=== PATIENT | female | born 1995 | race Caucasian/White ===

== ENCOUNTER 2020-07-09 04:14 | Emergency (ER) | payer SELFPAY ==
[~2020-07-09] VITALS: Ht 157.5 cm; Wt 63.7 kg
[2020-07-09] MEDS ORDERED: KETOROLAC 30 MG/1 ML ONE (04:38)
[2020-07-09] MEDS ORDERED: ONDANSETRON 2MG/ML, 2ML ONE (04:39)
--- NOTE | 2020-07-09 04:52 | NUR ---
Pt to ER with c/o abd pain, flank pain, n/v that started last night. Pt states she has had kidney stones in the past and this feels similar. Pt has had n/v this morning and can't keep anything down. Pt states she took a percocet last night. Pt to room, unable to give urine sample at this time. Pt on monitor, IV started, labs drawn and pt medicated per order. Warm blanket given. will Monitor.
[2020-07-09] MEDS ORDERED: ONDANSETRON 2MG/ML, 2ML IVPush ONE (05:00)
[2020-07-09] MEDS ORDERED: KETOROLAC 30 MG/1 ML IVPush ONE (05:00)
[2020-07-09] MEDS ORDERED: SODIUM CHLORIDE FLUSH 10ML SYR IVF ONE (05:00)
[2020-07-09 05:11] LABS: BASOPHILS % (AUTO) 0 % (0-1); EOSINOPHILS % (AUTO) 0 % (1-7); LYMPHOCYTES % (AUTO) 16 % (22-44); MEAN CORPUSCULAR HEMOGLOBIN 31.8 pg (27.0-34.8); MEAN CORPUSCULAR HGB CONC 35.5 g/dL (32.4-35.8); MEAN PLATELET VOLUME 7.5 fL (7.4-10.4); MONOCYTES % (AUTO) 6 % (2-9); NEUTROPHILS % (AUTO) 77 % (42-75); PLATELET COUNT 181 x10^3/uL (130-400); RED BLOOD COUNT 4.58 x10^6/uL (3.82-5.3); RED CELL DISTRIBUTION WIDTH 12.1 % (9.6-15.2)
[2020-07-09 05:14] LABS: MD NO
[2020-07-09 05:18] LABS: ALANINE AMINOTRANSFERASE 18 U/L (12-78); ALBUMIN 4.4 g/dL (3.4-5.0); ANION GAP 11 mmol/L (5-15); CHLORIDE 105 mmol/L (98-107); CREATININE 0.77 mg/dL (0.55-1.02)
[2020-07-09 05:23] LABS: ALKALINE PHOSPHATASE 53 U/L (45-117); BILIRUBIN,TOTAL 0.5 mg/dL (0.2-1.0); TOTAL PROTEIN 7.6 g/dL (6.4-8.2)
--- NOTE | 2020-07-09 05:26 | NUR ---
Pt states pain and nausea have improved. Pt aware of the need for UA.
[2020-07-09 06:12] LABS: MICROSCOPIC INDICATED
--- NOTE | 2020-07-09 07:04 | NUR ---
FIRST CONTACT. PT. REPORTS FEELING BETTER. PROVIDER AT THE BEDSIDE TO DISCUSS FINDINGS. PT. WAS GIVEN DISCHARGE INSTRUCTIONS AND SCRIPTS WITH UNDERSTANDING VERBALIZED ALONG WITH WILLINGNESS TO COMPLY. PT.'S IV WAS DCD', CATH TIP INTACT. PRESSURE HELD WITH HEMOSTASISI ACHIEVED. PT. WAS AMBULATORY TO THE DISCHARGE WITH A STEADY GAIT.
[2020-07-09 07:06] VITALS: BP 100/56
== END 2020-07-09 07:11 | disposition home or self-care (01) ==
LOC: ED 05:31
DX: N13.2 Hydronephrosis with renal and ureteral calculous obstruction (principal); M54.5 Low back pain; R11.2 Nausea with vomiting, unspecified; R10.9 Unspecified abdominal pain
CPT/HCPCS: 36415; 74018; 76770; 80053; 81001; 84703; 85025; 87086; 96374; 96375; 99285; J1885; J2405